=== PATIENT | male | born 2000 | race Hispanic/Latino ===

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

== ENCOUNTER 2023-03-27 17:15 | Emergency (ER) | payer SELFPAY ==
[~2023-03-27] VITALS: Ht 175.3 cm; Wt 80.2 kg
[~2023-03-27 17:15] MED LIST changes: +SERTRALINE25 MG PO
[2023-03-27] MEDS ORDERED: KEFLEX500 MG PO (19:44)
[2023-03-27] MEDS ORDERED: TRAMADOL HYDROC50 M1 PO (19:44)
[2023-03-27 20:06] VITALS: BP 110/75
== END 2023-03-27 20:07 | disposition home or self-care (01) | DRG 605 ==
LOC: ED 17:15
PROC: 0HBQXZZ Excision of Finger Nail, External Approach (ICD-10-PCS; principal; 2023-03-27)
PROC: 0HQGXZZ Repair Left Hand Skin, External Approach (ICD-10-PCS; 2023-03-27)
DX: S60.112A Contusion of left thumb with damage to nail, initial encounter (principal); S61.012A Laceration without foreign body of left thumb without damage to nail, initial encounter; W27.0XXA Contact with workbench tool, initial encounter; Y92.009 Unspecified place in unspecified non-institutional (private) residence as the place of occurrence of the external cause